=== PATIENT | male | born 1965 | race Caucasian/White ===

== ENCOUNTER 2017-08-20 14:22 | Emergency (ER) | payer BC ==
[~2017-08-20] VITALS: Ht 170.2 cm; Wt 79.1 kg
[2017-08-20 14:26] VITALS: BP 152/92; PULSE 100; TEMP 98
[2017-08-20] MEDS ORDERED: PERCOCET 325 MG1 TA2 PO (15:49)
== END 2017-08-20 16:05 | disposition home or self-care (01) ==
LOC: COL.ER 14:22
DX: M54.2 Cervicalgia (principal); M79.2 Neuralgia and neuritis, unspecified

== ENCOUNTER 2017-12-26 17:33 | Emergency (ER) | payer BC ==
[~2017-12-26] VITALS: Ht 170.2 cm; Wt 77.3 kg
[~2017-12-26 17:33] MED LIST: PERCOCET 325 MG1 TA2 PO
[2017-12-26 17:42] VITALS: TEMP 99.4
[2017-12-26] MEDS ORDERED: GLUCOPHAGE500 MG/TAB PO (18:12)
[2017-12-26] MEDS ORDERED: LEXAPRO 10MG10 MG PO (18:13)
[2017-12-26] MEDS ORDERED: PRINIVIL10 MG PO (18:13)
[2017-12-26] MEDS ORDERED: ATIVAN 1MG T1 MG/TAB PO (18:58)
[2017-12-26] MEDS ORDERED: ZOFRAN 4MG T4 MG/TAB PO (18:58)
[2017-12-26 19:25] VITALS: BP 135/93; PULSE 97
== END 2017-12-26 19:25 | disposition home or self-care (01) ==
LOC: COL.ER 17:33
DX: F10.239 Alcohol dependence with withdrawal, unspecified (principal); F17.210 Nicotine dependence, cigarettes, uncomplicated; Z79.84 Long term (current) use of oral hypoglycemic drugs

== ENCOUNTER 2017-12-28 15:05 | Emergency (ER) | payer BC ==
[~2017-12-28] VITALS: Ht 170.2 cm; Wt 76.4 kg
[~2017-12-28 15:05] MED LIST changes: +ATIVAN 1MG T1 MG/TAB PO; +GLUCOPHAGE500 MG/TAB PO; +LEXAPRO 10MG10 MG PO; +PRINIVIL10 MG PO; +ZOFRAN 4MG T4 MG/TAB PO
[2017-12-28 15:10] VITALS: BP 113/85; TEMP 98.9
[2017-12-28] MEDS ORDERED: ATIVAN 1MG T1 MG/TAB PO (15:45)
[2017-12-28] MEDS ORDERED: DESYREL 100MG100 MG PO (15:50)
[2017-12-28 15:59] VITALS: PULSE 130
== END 2017-12-28 15:59 | disposition home or self-care (01) ==
LOC: COL.ER 15:05
DX: F10.239 Alcohol dependence with withdrawal, unspecified (principal); I10 Essential (primary) hypertension; F32.9 Major depressive disorder, single episode, unspecified; Z79.84 Long term (current) use of oral hypoglycemic drugs

== ENCOUNTER 2018-11-28 22:35 | Observation (INO) | payer SELFPAY ==
[~2018-11-28] VITALS: Ht 170.2 cm; Wt 71.6 kg
[~2018-11-28 22:35] MED LIST changes: +DESYREL 100MG100 MG PO
[2018-11-28] MEDS ORDERED: GLUCOPHAGE500 MG/TAB PO (23:20)
[2018-11-28 23:35] LABS: BASO # 0.1 (0.0-0.2); BASO % 1.1 % (0.0-2.0); EOS # 0.1 (0.0-0.7); EOS % 0.9 % (0-4.0); GRAN # 1.8 (1.4-6.5); GRAN % 33.4 % (42.2-75.2); HEMOGLOBIN 11.6 g/dl (13.5-18.0); LYMPH # 2.9 (1.2-3.4); MEAN CELL VOLUME 95 fl (80.0-100.0); MEAN CORPUSCULAR HEMOGLOBIN 33 pg (27.0-31.0); MEAN CORPUSCULAR HGB CONC 34 g/dl (33.0-37.0); MEAN PLATELET VOLUME 9.3 fl (7.4-10.4); MONO # 0.5 (0.1-0.6); MONO % 9.2 % (1.7-9.3); PLATELET COUNT 205 K/mm3 (130-400); RED BLOOD COUNT 3.57 M/mm3 (4.20-5.60); REDCELL DISTRIBUTION WIDTH-CV 14.1 % (11.5-14.5)
[2018-11-28 23:39] LABS: HEMATOCRIT 33.9 % (42.0-52.0)
[2018-11-28 23:42] LABS: INR 0.9 (0.8-3.0); PROTHROMBIN TIME 10.4 SECONDS (9.7-12.8)
[2018-11-28 23:44] LABS: PARTIAL THROMBOPLASTIN TIME 33.2 SECONDS (26.0-37.0)
[2018-11-28 23:47] LABS: ALANINE AMINOTRANSFERASE 48 U/L (21-72); ALBUMIN 3.8 gm/dL (3.5-5.0); ALCOHOL(ethanol),MEDICAL 276 mg/dL; ALKALINE PHOSPHATASE 54 U/L (50-136); ANION GAP 7 mmol/L (7-16); AST,SGOT 87 U/L (15-37); BILIRUBIN,TOTAL 0.2 mg/dL (0.0-1.0); BLOOD UREA NITROGEN 23 mg/dL (9-20); CALCIUM 8.8 mg/dL (8.4-10.2); CARBON DIOXIDE 27 mmol/L (22-30); CHLORIDE 108 mmol/L (98-107); CREATININE, serum 0.78 (0.66-1.25); GLUCOSE 115 mg/dL (74-106); POTASSIUM 4.1 mmol/L (3.4-5.0); SODIUM 142 mmol/L (137-145); TOTAL PROTEIN 6.4 gm/dL (6.4-8.2)
[2018-11-28 23:58] LABS: TROPONIN-I < 0.012 ng/mL (0.000-0.035)
[2018-11-29] VITALS (8 sets, daily range): BP systolic 101–137; BP diastolic 65–82; PULSE 54–100; TEMP 98–98.6
--- NOTE | 2018-11-29 06:30 | NUR ---
DR ARZOLA NOTIFIED OF CARDIOLOGY CONSULT. RADIOLOGY CALLED WITH PLAN OF ECHO AND LEXISCAN TO BE DONE AROUND 15. NICOTINE PATCH REMOVED. HAS BEEN NPO SINCE HE ARRIVED. STILL WITH SLURRED SPEACH. REPORT GIVEN TO MAGNUS BARBOUR.
[2018-11-29 07:20] LABS: BASO % 0.9 % (0.0-2.0); EOS % 0.9 % (0-4.0); GRAN # 1.4 (1.4-6.5); GRAN % 29.8 % (42.2-75.2); HEMOGLOBIN 10.6 g/dl (13.5-18.0); LYMPH # 2.6 (1.2-3.4); LYMPH % 57.7 % (20.0-51.0); MEAN CELL VOLUME 95 fl (80.0-100.0); MEAN CORPUSCULAR HEMOGLOBIN 33 pg (27.0-31.0); MEAN CORPUSCULAR HGB CONC 34 g/dl (33.0-37.0); MEAN PLATELET VOLUME 9.7 fl (7.4-10.4); MONO # 0.5 (0.1-0.6); MONO % 10.3 % (1.7-9.3); PLATELET COUNT 189 K/mm3 (130-400); RED BLOOD COUNT 3.25 M/mm3 (4.20-5.60); REDCELL DISTRIBUTION WIDTH-CV 13.9 % (11.5-14.5)
[2018-11-29 07:24] LABS: HEMATOCRIT 30.8 % (42.0-52.0)
[2018-11-29 07:33] LABS: ANION GAP 7 mmol/L (7-16); BLOOD UREA NITROGEN 23 mg/dL (9-20); CALCIUM 8.2 mg/dL (8.4-10.2); CARBON DIOXIDE 26 mmol/L (22-30); CHLORIDE 110 mmol/L (98-107); CHOLESTEROL 115 mg/dL (120-200); CHOLESTEROL RISK RATIO 1.9; CREATININE, serum 0.67 (0.66-1.25); GLUCOSE 90 mg/dL (74-106); HDL CHOLESTEROL 59 mg/dL; LDL CHOLESTEROL 2 mg/dL; POTASSIUM 4.1 mmol/L (3.4-5.0); SODIUM 142 mmol/L (137-145); TRIGLYCERIDE 270 mg/dL
[2018-11-29 07:48] LABS: TROPONIN-I 6 HR POST INITIAL < 0.012 ng/mL (0.000-0.034)
--- NOTE | 2018-11-29 09:12 | NUR ---
ESTEE gottlieb attended clinical rounds and met with patient to discuss discharge plan. Patient lives alone in [place]. Patient's PCP is Dr. Zuñiga and he uses the [facility]. Patient does not use any DME and is independent with ADLs. Patient does not have a DPOA-HC completed and he does not wish to complete one at this time. Patient inquired about hospital bill and not being able to afford the bill. ESTEE gottlieb offered to have a financial counselor come talk with patient and possibly fill out assistance application. Patient was agreeable to this. ESTEE gottlieb contacted Juan Antonio (financial counselor) who is to meet with patient today regarding assistance. ESTEE gottlieb inquired about patient's alcohol use. Patient has been trying to quit drinking off and on the past year. In summer 2017, patient was at [facility] [place] in [place] for a few weeks, patient was able to stay sober for 3 months. Patient was interested in trying treatment again. ESTEE gottlieb provided patient with information packet with treatment options and centers, as well as [facility] number. Patient verbalized understanding and was going to think about calling. SW to continue to follow.
--- NOTE | 2018-11-29 12:30 | NUR ---
Patient slept most the morning. He has been drowsy. His lexiscan has been done and he will be going home this afternoon. Patient did not want to take medications ordered today. He does not remember everything about being admitted last night. Explained how to order food. No other changes at this time. Call light within reach.
[2018-11-29] MEDS ORDERED: PRINIVIL10 MG PO (12:40)
[2018-11-29] MEDS ORDERED: GLUCOPHAGE500 MG/TAB PO (12:41)
[2018-11-29] MEDS ORDERED: LEXAPRO 10MG10 MG PO (13:00)
[2018-11-29] MEDS ORDERED: DESYREL 100MG100 MG PO (13:00)
[2018-11-29] MEDS ORDERED: ATIVAN 1MG T1 MG/TAB PO (13:00)
--- NOTE | 2018-11-29 15:40 | NUR ---
Patient is discharging home. Discharge instructions discussed with patient. No questions verbalized. Explained when follow up is with primary doctor. Explained that the cardiology office will call with follow up appointment. 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 Patient verbalized understanding. Copies of discharge instructions sent with patient. All belongings packed up and sent with him. His ex- is here to take him home. Patient walked out with Tila BENITEZ.
== END 2018-11-29 15:40 | disposition home or self-care (01) ==
LOC: COL.ER 22:35 → SURG 11-29 00:09
PROVIDERS: Emergency Medicine; Nurse Practitioner; ADMIT Hospitalist
DX: R07.89 Other chest pain (principal); E11.9 Type 2 diabetes mellitus without complications; Z79.84 Long term (current) use of oral hypoglycemic drugs; F10.20 Alcohol dependence, uncomplicated; Y90.8 Blood alcohol level of 240 mg/100 ml or more; E78.5 Hyperlipidemia, unspecified; I10 Essential (primary) hypertension; F17.210 Nicotine dependence, cigarettes, uncomplicated; Z79.899 Other long term (current) drug therapy; Z83.3 Family history of diabetes mellitus; I08.1 Rheumatic disorders of both mitral and tricuspid valves
CPT/HCPCS: A9500; G0378; J1644; J2785; J7030

== ENCOUNTER 2019-01-14 16:28 | Emergency (ER) | payer SELFPAY ==
[~2019-01-14] VITALS: Ht 162.6 cm; Wt 67.3 kg
[2019-01-14 16:37] VITALS: TEMP 96.4
[2019-01-14 18:00] LABS: BASO # 0.1 (0.0-0.2); EOS % 0.6 % (0-4.0); GRAN # 2.7 (1.4-6.5); HEMATOCRIT 31.1 % (42.0-52.0); HEMOGLOBIN 10.7 g/dl (13.5-18.0); LYMPH # 2.1 (1.2-3.4); LYMPH % 40.2 % (20.0-51.0); MEAN CELL VOLUME 102 fl (80.0-100.0); MEAN CORPUSCULAR HEMOGLOBIN 35 pg (27.0-31.0); MEAN CORPUSCULAR HGB CONC 34 g/dl (33.0-37.0); MEAN PLATELET VOLUME 10.6 fl (7.4-10.4); MONO # 0.3 (0.1-0.6); MONO % 5.8 % (1.7-9.3); PLATELET COUNT 79 K/mm3 (130-400); RED BLOOD COUNT 3.05 M/mm3 (4.20-5.60); REDCELL DISTRIBUTION WIDTH-CV 14.9 % (11.5-14.5)
[2019-01-14 18:10] LABS: ACETAMINOPHEN < 10 ug/mL (10-30); ALANINE AMINOTRANSFERASE 79 U/L (21-72); ALBUMIN 3.5 gm/dL (3.5-5.0); ALCOHOL(ethanol),MEDICAL 239 mg/dL; ALKALINE PHOSPHATASE 193 U/L (50-136); ANION GAP 11 mmol/L (7-16); AST,SGOT 274 U/L (15-37); BILIRUBIN,TOTAL 0.6 mg/dL (0.0-1.0); BLOOD UREA NITROGEN 16 mg/dL (9-20); CALCIUM 9.3 mg/dL (8.4-10.2); CARBON DIOXIDE 26 mmol/L (22-30); CHLORIDE 106 mmol/L (98-107); CREATININE, serum 0.74 (0.66-1.25); GLUCOSE 137 mg/dL (74-106); POTASSIUM 4.2 mmol/L (3.4-5.0); SALICYLATE < 1.0 mg/dL; SODIUM 143 mmol/L (137-145); TOTAL PROTEIN 6.5 gm/dL (6.4-8.2)
[2019-01-14 19:23] LABS: COLLECTION METHOD CLEAN CATCH
[2019-01-14 19:28] LABS: PH 6 (5-8); SQUAMOUS EPITHELIAL None Seen /hpf; URINE APPEARANCE Clear; URINE BACTERIA None Seen /hpf; URINE BILIRUBIN Negative (NEGATIVE); URINE BLOOD Negative (NEGATIVE); URINE COLOR Yellow; URINE GLUCOSE Negative (NEGATIVE); URINE KETONE Negative (NEGATIVE); URINE LEUKOCYTE ESTERASE Negative (NEGATIVE); URINE NITRATE Negative (NEGATIVE); URINE PROTEIN(semi-quant) Negative (NEGATIVE); URINE RBC None Seen /hpf; URINE UROBILINOGEN Negative (NEGATIVE)
[2019-01-14 19:36] LABS: TRICYCLIC ANTIDEPRESS URINE NEGATIVE
[2019-01-14] MEDS ORDERED: ATIVAN2 MG PO (19:50)
[2019-01-14 20:00] VITALS: BP 113/86; PULSE 92
[2019-01-15] MEDS ORDERED: NEURONTIN300 MG/CAP PO (16:23)
[2019-01-15] MEDS ORDERED: LIBRIUM 25M25 MG/CAP PO ×2 (16:25→18:14)
[2019-01-15] MEDS ORDERED: PHENERGAN 25 TA25 MG PO (16:26)
[2019-01-15] MEDS ORDERED: DESYREL 100MG100 MG PO (18:05)
== END 2019-01-14 20:18 | disposition home or self-care (01) ==
LOC: COL.ER 16:28
PROVIDERS: Emergency Medicine
DX: F10.129 Alcohol abuse with intoxication, unspecified (principal); E11.9 Type 2 diabetes mellitus without complications; E78.00 Pure hypercholesterolemia, unspecified; Y90.7 Blood alcohol level of 200-239 mg/100 ml; Z79.84 Long term (current) use of oral hypoglycemic drugs
CPT/HCPCS: J1885; J2060; J3475; J7030

== ENCOUNTER 2019-01-15 14:54 | Emergency (ER) | payer SELFPAY ==
[~2019-01-15] VITALS: Ht 170.2 cm; Wt 68.2 kg
[~2019-01-15 14:54] MED LIST changes: +ATIVAN2 MG PO
[2019-01-15 14:59] VITALS: TEMP 99.8
[2019-01-15] MEDS ORDERED: NEURONTIN300 MG/CAP PO (16:23)
[2019-01-15] MEDS ORDERED: LIBRIUM 25M25 MG/CAP PO ×2 (16:25→18:14)
[2019-01-15] MEDS ORDERED: PHENERGAN 25 TA25 MG PO (16:26)
[2019-01-15 16:54] LABS: BASO # 0.1 (0.0-0.2); BASO % 1.1 % (0.0-2.0); EOS % 0.6 % (0-4.0); GRAN # 3.6 (1.4-6.5); GRAN % 65.7 % (42.2-75.2); LYMPH # 1.5 (1.2-3.4); LYMPH % 26.7 % (20.0-51.0); MEAN CELL VOLUME 101 fl (80.0-100.0); MEAN CORPUSCULAR HGB CONC 35 g/dl (33.0-37.0); MEAN PLATELET VOLUME 11.5 fl (7.4-10.4); MONO # 0.3 (0.1-0.6); MONO % 5.5 % (1.7-9.3); PLATELET COUNT 68 K/mm3 (130-400); RED BLOOD COUNT 2.67 M/mm3 (4.20-5.60); REDCELL DISTRIBUTION WIDTH-CV 15.1 % (11.5-14.5)
[2019-01-15 16:56] LABS: HEMOGLOBIN 9.4 g/dl (13.5-18.0); MEAN CORPUSCULAR HEMOGLOBIN 35 pg (27.0-31.0)
[2019-01-15 17:12] LABS: ALBUMIN 2.9 gm/dL (3.5-5.0); BILIRUBIN,TOTAL 0.6 mg/dL (0.0-1.0); CALCIUM 7.8 mg/dL (8.4-10.2); CREATININE, serum 0.71 (0.66-1.25); POTASSIUM 3.8 mmol/L (3.4-5.0); TOTAL PROTEIN 5.4 gm/dL (6.4-8.2)
[2019-01-15] MEDS ORDERED: DESYREL 100MG100 MG PO (18:05)
[2019-01-15 18:43] VITALS: BP 131/93; PULSE 60
== END 2019-01-15 18:45 | disposition home or self-care (01) ==
LOC: COL.ER 14:54
PROVIDERS: Emergency Medicine
DX: F10.239 Alcohol dependence with withdrawal, unspecified (principal); D64.9 Anemia, unspecified; E11.9 Type 2 diabetes mellitus without complications; I10 Essential (primary) hypertension; E78.5 Hyperlipidemia, unspecified; Z79.84 Long term (current) use of oral hypoglycemic drugs
CPT/HCPCS: J2060; J2405; J3475; J7030

== ENCOUNTER 2019-01-29 23:10 | Emergency (ER) | payer SELFPAY ==
[~2019-01-29] VITALS: Ht 170.2 cm; Wt 68.2 kg
[~2019-01-29 23:10] MED LIST changes: +LIBRIUM 25M25 MG/CAP PO; +NEURONTIN300 MG/CAP PO; +PHENERGAN 25 TA25 MG PO
[2019-01-30] MEDS ORDERED: LIPITOR 40MG TA40 MG PO (00:34)
[2019-01-30] MEDS ORDERED: NEURONTIN300 MG/CAP PO (00:34)
[2019-01-30 03:11] LABS: COLLECTION METHOD CLEAN CATCH
[2019-01-30 03:14] LABS: BASO # 0.1 (0.0-0.2); EOS # 0.2 (0.0-0.7); EOS % 1.8 % (0-4.0); GRAN # 5.5 (1.4-6.5); GRAN % 58.6 % (42.2-75.2); LYMPH # 2.9 (1.2-3.4); LYMPH % 30.5 % (20.0-51.0); MEAN CELL VOLUME 108 fl (80.0-100.0); MEAN CORPUSCULAR HGB CONC 32 g/dl (33.0-37.0); MONO # 0.7 (0.1-0.6); MONO % 7.4 % (1.7-9.3); PLATELET COUNT 315 K/mm3 (130-400); RED BLOOD COUNT 2.72 M/mm3 (4.20-5.60); REDCELL DISTRIBUTION WIDTH-CV 14.2 % (11.5-14.5)
[2019-01-30 03:19] LABS: HEMATOCRIT 29.4 % (42.0-52.0); HEMOGLOBIN 9.5 g/dl (13.5-18.0); MEAN CORPUSCULAR HEMOGLOBIN 35 pg (27.0-31.0)
[2019-01-30 03:23] LABS: PH 7 (5-8); SQUAMOUS EPITHELIAL None Seen /hpf; URINE APPEARANCE Clear; URINE BACTERIA None Seen /hpf; URINE BILIRUBIN Negative (NEGATIVE); URINE BLOOD Negative (NEGATIVE); URINE COLOR Yellow; URINE GLUCOSE Negative (NEGATIVE); URINE KETONE Trace (NEGATIVE); URINE LEUKOCYTE ESTERASE Negative (NEGATIVE); URINE NITRATE Negative (NEGATIVE); URINE PROTEIN(semi-quant) Negative (NEGATIVE); URINE RBC 0-2 /hpf; URINE UROBILINOGEN Negative (NEGATIVE)
[2019-01-30 03:27] LABS: ALANINE AMINOTRANSFERASE 35 U/L (21-72); ALBUMIN 3.7 gm/dL (3.5-5.0); ALCOHOL(ethanol),MEDICAL < 10 mg/dL; ALKALINE PHOSPHATASE 57 U/L (50-136); ANION GAP 7 mmol/L (7-16); AST,SGOT 50 U/L (15-37); BILIRUBIN,TOTAL 0.3 mg/dL (0.0-1.0); BLOOD UREA NITROGEN 15 mg/dL (9-20); CALCIUM 9.3 mg/dL (8.4-10.2); CARBON DIOXIDE 26 mmol/L (22-30); CHLORIDE 108 mmol/L (98-107); CREATININE, serum 1.02 (0.66-1.25); GLUCOSE 70 mg/dL (74-106); POTASSIUM 4.6 mmol/L (3.4-5.0); SODIUM 141 mmol/L (137-145); TOTAL PROTEIN 6.6 gm/dL (6.4-8.2)
[2019-01-30 03:55] LABS: ERYTHROCYTE SEDIMENTATION RATE 32 mm/hr (0-30)
[2019-01-30] MEDS ORDERED: FLEXERIL 1010 MG/TAB PO (04:54)
[2019-01-30] MEDS ORDERED: PERCOCET 325 MG1 TA2 PO (10:51)
[2019-01-30 10:54] VITALS: BP 91/62; PULSE 72; TEMP 97.3
== END 2019-01-30 10:54 | disposition home or self-care (01) ==
LOC: COL.ER 23:10
PROVIDERS: Physician Assistant
DX: M54.2 Cervicalgia (principal); F17.210 Nicotine dependence, cigarettes, uncomplicated; Z90.49 Acquired absence of other specified parts of digestive tract; Z79.84 Long term (current) use of oral hypoglycemic drugs
CPT/HCPCS: A9585; J1885

== ENCOUNTER 2019-12-28 23:20 | Emergency (ER) | payer SELFPAY ==
[~2019-12-28] VITALS: Ht 170.2 cm; Wt 70.0 kg
[~2019-12-28 23:20] MED LIST changes: +FLEXERIL 1010 MG/TAB PO; +LIPITOR 40MG TA40 MG PO
[2019-12-28 23:52] VITALS: TEMP 97.6
[2019-12-29 00:53] LABS: BASO # 0.1 (0.0-0.2); EOS % 0.4 % (0-4.0); GRAN # 2.9 (1.4-6.5); GRAN % 40.8 % (42.2-75.2); HEMATOCRIT 37.8 % (42.0-52.0); HEMOGLOBIN 13.1 g/dl (13.5-18.0); LYMPH # 3.5 (1.2-3.4); LYMPH % 48.7 % (20.0-51.0); MEAN CELL VOLUME 96 fl (80.0-100.0); MEAN CORPUSCULAR HEMOGLOBIN 33 pg (27.0-31.0); MEAN CORPUSCULAR HGB CONC 35 g/dl (33.0-37.0); MEAN PLATELET VOLUME 10.1 fl (7.4-10.4); MONO # 0.6 (0.1-0.6); MONO % 8.5 % (1.7-9.3); PLATELET COUNT 187 K/mm3 (130-400); RED BLOOD COUNT 3.96 M/mm3 (4.20-5.60); REDCELL DISTRIBUTION WIDTH-CV 13.6 % (11.5-14.5)
[2019-12-29 01:03] LABS: ALBUMIN 4.8 gm/dL (3.5-5.0); BILIRUBIN,TOTAL 0.4 mg/dL (0.0-1.0); CALCIUM 9.3 mg/dL (8.4-10.2); CREATININE, serum 1.01 (0.66-1.25); POTASSIUM 4.4 mmol/L (3.4-5.0)
[2019-12-29] MEDS ORDERED: ZOFRAN ODT4 MG SL (02:06)
[2019-12-29] MEDS ORDERED: ATIVAN 1MG T1 MG/TAB PO (02:06)
[2019-12-29] MEDS ORDERED: LIBRIUM 25M25 MG/CAP PO (02:06)
[2019-12-29 02:37] VITALS: BP 120/86; PULSE 98
[2019-12-29] MEDS ORDERED: ZOFRAN 4MG T4 MG/TAB PO (23:28)
== END 2019-12-29 02:41 | disposition home or self-care (01) ==
LOC: COL.ER 23:20
PROVIDERS: Emergency Medicine
DX: F10.239 Alcohol dependence with withdrawal, unspecified (principal); E11.9 Type 2 diabetes mellitus without complications; I10 Essential (primary) hypertension; F17.210 Nicotine dependence, cigarettes, uncomplicated; Z79.84 Long term (current) use of oral hypoglycemic drugs
CPT/HCPCS: J2060; J2550; J3411; J3475; J7030

== ENCOUNTER 2019-12-29 21:03 | Emergency (ER) | payer SELFPAY ==
[~2019-12-29] VITALS: Ht 170.2 cm; Wt 81.8 kg
[~2019-12-29 21:03] MED LIST changes: +ZOFRAN ODT4 MG SL
[2019-12-29 21:06] VITALS: TEMP 98.6
[2019-12-29 21:38] LABS: BASO # 0.1 (0.0-0.2); BASO % 1.1 % (0.0-2.0); EOS % 0.9 % (0-4.0); GRAN # 1.9 (1.4-6.5); GRAN % 40.3 % (42.2-75.2); HEMOGLOBIN 11.5 g/dl (13.5-18.0); LYMPH # 2.3 (1.2-3.4); LYMPH % 49.1 % (20.0-51.0); MEAN CELL VOLUME 97 fl (80.0-100.0); MEAN CORPUSCULAR HEMOGLOBIN 33 pg (27.0-31.0); MEAN CORPUSCULAR HGB CONC 34 g/dl (33.0-37.0); MEAN PLATELET VOLUME 10.2 fl (7.4-10.4); MONO # 0.4 (0.1-0.6); MONO % 8.2 % (1.7-9.3); PLATELET COUNT 149 K/mm3 (130-400); RED BLOOD COUNT 3.47 M/mm3 (4.20-5.60); REDCELL DISTRIBUTION WIDTH-CV 13.9 % (11.5-14.5)
[2019-12-29 21:39] LABS: HEMATOCRIT 33.5 % (42.0-52.0)
[2019-12-29 21:48] LABS: ACETAMINOPHEN < 10 ug/mL (10-30); ALANINE AMINOTRANSFERASE 67 U/L (4-49); ALBUMIN 4.4 gm/dL (3.5-5.0); ALKALINE PHOSPHATASE 55 U/L (50-136); ANION GAP 9 mmol/L (7-16); AST,SGOT 130 U/L (15-37); BILIRUBIN,TOTAL 0.4 mg/dL (0.0-1.0); BLOOD UREA NITROGEN 23 mg/dL (9-20); CALCIUM 8.9 mg/dL (8.4-10.2); CARBON DIOXIDE 25 mmol/L (22-30); CHLORIDE 106 mmol/L (98-107); CREATININE, serum 0.85 (0.66-1.25); GLUCOSE 181 mg/dL (74-106); POTASSIUM 4.3 mmol/L (3.4-5.0); SALICYLATE < 1.0 mg/dL; SODIUM 141 mmol/L (137-145); TOTAL PROTEIN 7.5 gm/dL (6.4-8.2)
[2019-12-29 21:59] LABS: ALCOHOL(ethanol),MEDICAL 345 mg/dL
[2019-12-29] MEDS ORDERED: ZOFRAN 4MG T4 MG/TAB PO (23:28)
[2019-12-29 23:56] VITALS: BP 122/84; PULSE 78
== END 2019-12-29 23:58 | disposition home or self-care (01) ==
LOC: COL.ER 21:03
PROVIDERS: Emergency Medicine
DX: S01.81XA Laceration without foreign body of other part of head, initial encounter (principal); I10 Essential (primary) hypertension; E11.9 Type 2 diabetes mellitus without complications; E78.5 Hyperlipidemia, unspecified; F17.210 Nicotine dependence, cigarettes, uncomplicated; F10.229 Alcohol dependence with intoxication, unspecified; Z79.84 Long term (current) use of oral hypoglycemic drugs; W17.89XA Other fall from one level to another, initial encounter; Y92.009 Unspecified place in unspecified non-institutional (private) residence as the place of occurrence of the external cause; Y90.8 Blood alcohol level of 240 mg/100 ml or more
CPT/HCPCS: J7030

== ENCOUNTER 2020-01-05 13:02 | Emergency (ER) | payer SELFPAY ==
[~2020-01-05] VITALS: Ht 170.2 cm; Wt 70.0 kg
[2020-01-05 13:10] VITALS: TEMP 98.3
[2020-01-05] MEDS ORDERED: LEXAPRO 5MG5 MG PO (14:10)
[2020-01-05] MEDS ORDERED: PRINIVIL20 MG PO (14:10)
[2020-01-05] MEDS ORDERED: LIORESAL 1010 MG/TAB PO (14:11)
[2020-01-05] MEDS ORDERED: SERAX 10MG10 MG/CAP PO ×2 (14:12→14:13)
[2020-01-05 15:11] LABS: BASO # 0.1 (0.0-0.2); BASO % 0.6 % (0.0-2.0); EOS % 0.2 % (0-4.0); GRAN # 6.1 (1.4-6.5); GRAN % 64.5 % (42.2-75.2); HEMOGLOBIN 11.7 g/dl (13.5-18.0); LYMPH # 2.5 (1.2-3.4); LYMPH % 26.4 % (20.0-51.0); MEAN CELL VOLUME 97 fl (80.0-100.0); MEAN CORPUSCULAR HEMOGLOBIN 33 pg (27.0-31.0); MEAN CORPUSCULAR HGB CONC 34 g/dl (33.0-37.0); MONO # 0.8 (0.1-0.6); PLATELET COUNT 185 K/mm3 (130-400); RED BLOOD COUNT 3.54 M/mm3 (4.20-5.60); REDCELL DISTRIBUTION WIDTH-CV 13.9 % (11.5-14.5)
[2020-01-05 15:16] LABS: HEMATOCRIT 34.3 % (42.0-52.0)
[2020-01-05 15:29] LABS: ALANINE AMINOTRANSFERASE 43 U/L (4-49); ALBUMIN 4.3 gm/dL (3.5-5.0); ALCOHOL(ethanol),MEDICAL 184 mg/dL; ALKALINE PHOSPHATASE 67 U/L (50-136); ANION GAP 12 mmol/L (7-16); AST,SGOT 66 U/L (15-37); BILIRUBIN,TOTAL 0.9 mg/dL (0.0-1.0); BLOOD UREA NITROGEN 32 mg/dL (9-20); CALCIUM 8.6 mg/dL (8.4-10.2); CARBON DIOXIDE 24 mmol/L (22-30); CHLORIDE 102 mmol/L (98-107); CREATININE, serum 1.35 (0.66-1.25); GLUCOSE 152 mg/dL (74-106); POTASSIUM 4.5 mmol/L (3.4-5.0); SODIUM 138 mmol/L (137-145); TOTAL PROTEIN 7.3 gm/dL (6.4-8.2)
[2020-01-05 15:30] LABS: ACETAMINOPHEN < 10 ug/mL (10-30); SALICYLATE < 1.0 mg/dL
[2020-01-05 15:39] LABS: TRICYCLIC ANTIDEPRESS URINE NEGATIVE
[2020-01-05 16:06] LABS: COLLECTION METHOD CLEAN CATCH
[2020-01-05 16:14] LABS: PH 6 (5-8); SQUAMOUS EPITHELIAL 0-2 /hpf; URINE APPEARANCE Clear; URINE BACTERIA None Seen /hpf; URINE BILIRUBIN Negative (NEGATIVE); URINE BLOOD Negative (NEGATIVE); URINE COLOR Yellow; URINE GLUCOSE Negative (NEGATIVE); URINE KETONE Negative (NEGATIVE); URINE LEUKOCYTE ESTERASE Negative (NEGATIVE); URINE NITRATE Negative (NEGATIVE); URINE PROTEIN(semi-quant) Negative (NEGATIVE); URINE RBC 0-2 /hpf; URINE UROBILINOGEN Negative (NEGATIVE)
[2020-01-05] MEDS ORDERED: LIBRIUM 25M25 MG/CAP PO (17:12)
[2020-01-05 17:57] VITALS: BP 130/80; PULSE 109
== END 2020-01-05 17:57 | disposition home or self-care (01) ==
LOC: COL.ER 13:02
PROVIDERS: Physician Assistant
DX: F10.20 Alcohol dependence, uncomplicated (principal); F32.9 Major depressive disorder, single episode, unspecified; E11.9 Type 2 diabetes mellitus without complications; F17.210 Nicotine dependence, cigarettes, uncomplicated; Z79.84 Long term (current) use of oral hypoglycemic drugs; Z90.89 Acquired absence of other organs
CPT/HCPCS: J2060; J7030

== ENCOUNTER 2020-01-17 21:51 | Emergency (ER) | payer SELFPAY ==
[~2020-01-17] VITALS: Ht 170.2 cm; Wt 70.0 kg
[~2020-01-17 21:51] MED LIST changes: +LEXAPRO 5MG5 MG PO; +LIORESAL 1010 MG/TAB PO; +PRINIVIL20 MG PO; +SERAX 10MG10 MG/CAP PO
[2020-01-17 21:55] VITALS: TEMP 98.1
[2020-01-17 22:26] LABS: BASO # 0.1 (0.0-0.2); BASO % 1.2 % (0.0-2.0); EOS # 0.1 (0.0-0.7); EOS % 1.3 % (0-4.0); GRAN # 2.7 (1.4-6.5); GRAN % 39.2 % (42.2-75.2); HEMOGLOBIN 12.3 g/dl (13.5-18.0); LYMPH # 3.4 (1.2-3.4); LYMPH % 49.7 % (20.0-51.0); MEAN CELL VOLUME 101 fl (80.0-100.0); MEAN CORPUSCULAR HEMOGLOBIN 34 pg (27.0-31.0); MEAN CORPUSCULAR HGB CONC 34 g/dl (33.0-37.0); MEAN PLATELET VOLUME 9.1 fl (7.4-10.4); MONO # 0.5 (0.1-0.6); MONO % 7.6 % (1.7-9.3); PLATELET COUNT 244 K/mm3 (130-400); RED BLOOD COUNT 3.63 M/mm3 (4.20-5.60); REDCELL DISTRIBUTION WIDTH-CV 15.2 % (11.5-14.5)
[2020-01-17 22:44] LABS: HEMATOCRIT 36.5 % (42.0-52.0)
[2020-01-17 23:29] LABS: ALANINE AMINOTRANSFERASE 37 U/L (4-49); ALBUMIN 4.1 gm/dL (3.5-5.0); ALKALINE PHOSPHATASE 75 U/L (50-136); ANION GAP 10 mmol/L (7-16); AST,SGOT 58 U/L (15-37); BILIRUBIN,TOTAL 0.3 mg/dL (0.0-1.0); BLOOD UREA NITROGEN 16 mg/dL (9-20); CARBON DIOXIDE 22 mmol/L (22-30); CHLORIDE 111 mmol/L (98-107); CREATININE, serum 1.03 (0.66-1.25); GLUCOSE 103 mg/dL (74-106); LIPASE 262 U/L (23-300); MAGNESIUM 1.3 mg/dL (1.6-2.3); PHOSPHOROUS 3.7 mg/dL (2.5-4.5); POTASSIUM 3.9 mmol/L (3.4-5.0); SODIUM 144 mmol/L (137-145); TOTAL PROTEIN 7.2 gm/dL (6.4-8.2)
[2020-01-17 23:36] LABS: ALCOHOL(ethanol),MEDICAL 338 mg/dL
[2020-01-17 23:40] LABS: TROPONIN-I < 0.012 ng/mL (0.000-0.035)
[2020-01-17] MEDS ORDERED: PERCOCET 325 MG1 TA2 PO ×2 (23:46→23:51)
[2020-01-18 00:17] VITALS: BP 118/82; PULSE 81
== END 2020-01-18 00:17 | disposition home or self-care (01) ==
LOC: COL.ER 21:51
PROVIDERS: Emergency Medicine
DX: S22.32XA Fracture of one rib, left side, initial encounter for closed fracture (principal); I10 Essential (primary) hypertension; E11.9 Type 2 diabetes mellitus without complications; F10.129 Alcohol abuse with intoxication, unspecified; Z79.84 Long term (current) use of oral hypoglycemic drugs; W19.XXXA Unspecified fall, initial encounter; Y92.009 Unspecified place in unspecified non-institutional (private) residence as the place of occurrence of the external cause; Y90.8 Blood alcohol level of 240 mg/100 ml or more
CPT/HCPCS: J1885; J7030

== ENCOUNTER → 2020-02-25 | Outpatient (REF) | LOC: COL.ER 14:35 | DX: Z02.83 Encounter for blood-alcohol and blood-drug test (principal) ==

== ENCOUNTER 2020-06-13 11:03 | Emergency (ER) | payer SELFPAY ==
[~2020-06-13] VITALS: Ht 170.2 cm; Wt 79.5 kg
[2020-06-13 12:07] VITALS: BP 128/74; PULSE 74; TEMP 97.8
== END 2020-06-13 12:23 | disposition home or self-care (01) ==
LOC: COL.ER 11:03
DX: S62.647A Nondisplaced fracture of proximal phalanx of left little finger, initial encounter for closed fracture (principal); F32.9 Major depressive disorder, single episode, unspecified; F41.9 Anxiety disorder, unspecified; I10 Essential (primary) hypertension; Z79.84 Long term (current) use of oral hypoglycemic drugs; W22.8XXA Striking against or struck by other objects, initial encounter; Y92.009 Unspecified place in unspecified non-institutional (private) residence as the place of occurrence of the external cause